=== PATIENT | male | born 1965 | race Caucasian/White ===

== ENCOUNTER 2024-06-13 16:09 | Emergency (ER) | payer SELFPAY ==
[2024-06-13 17:54] LABS: Absolute Basophils 0.1 K/uL (0-0.5); Absolute Eosinophils 0.1 K/uL (0-0.5); Absolute Lymphocytes (CBC) 1.3 K/uL (0.7-4.9); Absolute Monocytes 1.3 K/uL (0.1-1.3); Absolute Neutrophil 12.4 K/uL (1.8-8.0); Basophils % 0.7 % (0-1.3); Eosinophils % 0.7 % (0-4.4); Hematocrit 37.1 % (39.6-49.0); Lymphocytes % 8.4 % (15.3-44.8); MCH 28.6 pg (27.0-35.0); MCHC 32.4 g/dL (32.0-36.0); MPV 6.9 fL (7.6-11.3); Monocytes % 8.3 % (3.3-12.3); Neutrophils % 81.9 % (41.7-73.7); Platelets 382 thou/uL (152-406); RBC Red Blood Cell Count 4.21 M/uL (4.33-5.43); Red Cell Distribution Width 15.9 % (12.1-15.2)
[2024-06-13 17:56] LABS: PT Prothrombin Time 12.4 SECONDS (9.4-12.5); PTT, Activated Partial Thromb 30.2 SECONDS (24.3-36.9); Protime INR 1.11
[2024-06-13 18:10] LABS: Albumin/Globulin Ratio 0.5 (1.1-1.8); Anion Gap 10.9 mEq/L (5.0-15.0); Bilirubin Direct 0.3 mg/dL (0-0.2); Bilirubin Indirect, Calculated 0.3 mg/dL (0.2-0.8); Bilirubin Total 0.6 mg/dL (0.2-1.0); Globulin 3.7 g/dL (2.3-3.5); Potassium 2.9 mEq/L (3.5-5.1); Protein, Total 5.7 g/dL (6.4-8.2); Troponin High Sensitivity 5.2 pg/mL (<58.9)
--- NOTE | 2024-06-13 18:27 | RAD REPORT ---
EXAMINATION: TWO VIEW CHEST XR CLINICAL INDICATION: Male, 59 years old. [facility] MAIN DYSPNEA Bed Name: 6 TECHNIQUE: 2 view radiographs of the chest were performed. COMPARISON: No prior exam. FINDINGS: The lungs are well inflated. Bibasilar streaky opacities. Right small layering pleural effusion with additional hazy right basilar opacification. No pneumothorax. The heart is normal in size. Mediastinal contours are unremarkable. IMPRESSION: Right more than left basilar opacities with small right pleural effusion. Underlying pneumonia should be considered.
--- NOTE | 2024-06-13 19:21 | RAD REPORT ---
EXAMINATION: CT Abdomen Pelvis Wo Contrast CLINICAL INDICATION: Male, 59 years old. Abd pain;Abdominal distention TECHNIQUE: CT abdomen and pelvis was performed, without IV contrast, as per department protocol. Axia l, sagittal and coronal reconstructions were obtained. One or more of the following dose reduction techniques were used: Automated exposure control, adjustment of the mA and kV according to the patien t size, and iterative reconstruction. Unless otherwise specified, incidental findings do not require dedicated imaging follow-up. COMPARISON: No prior exam. FINDINGS: The lack of intravenous contrast limits the sensitivity of this exam for evaluation of solid visceral organs, vascular structures, and retroperitoneum. LOWER CHEST: Bilateral small pleural effusions, larger on the right. Underlying right segmental depen dent airspace opacities with some groundglass opacification in the right lower and middle lobes as well. LIVER: Enlarged, with lobular contour, and innumerable hypoattenuating lesions, some of which demonst rating target morphology, largest measuring 7.2 cm in greatest axial dimension in the left liver lobe.. BILIARY SYSTEM: No suspicious abnormalities. SPLEEN: Normal size. No focal lesion. PANCREAS: No mass, ductal dilation, or rodney-pancreatic fluid. ADRENALS: Normal; no mass. KIDNEYS AND URETERS: Normal size and contour. No hydronephrosis. URINARY BLADDER: Normal contour. GASTROINTESTINAL TRACT: Distal sigmoid through rectal segmental circumferential wall prominence, alth ough under distention limits evaluation. A soft tissue mass is present in the presacral space, measuring 3.6 x 2.7 cm in greatest axial dimension, containing a focus of mineralization, appears to be inseparable from the upper rectal adventitia. No evidence of bowel obstruction, free air or abscess. Moderate to large free ascites. For [id number] ratio limits evaluation for peritoneal l esions. APPENDIX: Appendix not visualized, but no inflammatory changes in region of appendix. LYMPH NODES: No lymphadenopathy. MUSCULOSKELETAL: No acute or suspicious osseous abnormality. ADDITIONAL FINDINGS: Moderate diffuse body wall edema.. IMPRESSION: Hepatomegaly with innumerable hypoattenuating liver masses, concerning for metastatic disease. Segmental circumferential wall prominence of the distal sigmoid colon to rectum, could indicate an un derlying mucosal mass, which could represent the primary malignancy, although under distention limits evaluation. A soft tissue mass is present in the presacral space, contiguous with the upper re ctal adventitia measuring up to 3.6 cm, concerning for extra-rectal spread. Moderate to large ascites, bilateral pleural effusions, and body wall edema, may relate to anasarca o r fluid overload. Right basilar airspace opacities, concerning for pneumonia.
--- NOTE | 2024-06-13 19:24 | RAD REPORT ---
EXAMINATION: CT Thorax Wo Con CLINICAL INDICATION: Male, 59 years old. [facility] MAIN abnormal xray Y TECHNIQUE: Axial CT scan of the chest without intravenous contrast. Multiplanar reformats were genera sue and reviewed. One or more of the following dose reduction techniques were used: Automated exposure control, adjustment of the mA and/or kV according patient size, and/or iterative reconstruct ion. Unless otherwise specified, incidental findings do not require dedicated imaging follow-up. COMPARISON: No prior exam. FINDINGS: LOWER NECK: Visualized thyroid gland and soft tissues are normal. LUNGS: Platelike atelectasis in the left lower lung. Segmental airspace opacities with some groundgla ss opacification in the basal right lower lobe and middle lobe. Mild centrilobular emphysematous changes at the apices. No worrisome nodules. PLEURA: Bilateral layering small pleural effusions, larger on the right. No pneumothorax. . MEDIASTINUM AND LYMPH NODES: No mediastinal mass or fluid collection. Normal size mediastinal, hilar, and axillary lymph nodes. OSSEOUS STRUCTURES AND CHEST WALL: Intact. UPPER ABDOMEN: Please refer to separately dictated CT abdomen and pelvis of the same day.. IMPRESSION: Right basilar airspace opacities as above, concerning for pneumonia until proven otherwise. Bilateral small layering effusions, larger on the right. CT abdomen and pelvis reported separately.
--- NOTE | 2024-06-13 19:45 | ER ---
Nurse's Notes [facility] Name: Darshan Mendez Age: 59 yrs Sex: Male : 1965 Arrival Date: 06/13/2024 Time: 16:09 Bed 6 Private MD: Diagnosis: Malignant ascites;Nonspecific elevation of levels of transaminase and lactic acid dehydrogenase [LDH] Presentation: 06/13 16:30 Chief complaint: Patient states: "I haven't been to the doctor in about 40 years and my aa5 stomach has been getting bigger and bigger, I am losing all this weight, I am so weak, and my legs are swollen". Pt reports he drinks "a six pack of beers every day". Pt reports diarrhea since around February. 16:30 Coronavirus screen: At this time, the client does not indicate any symptoms associated aa5 with coronavirus-19. Ebola Screen: Patient denies travel to an Ebola-affected area in the 21 days before illness onset. Initial Sepsis Screen: Does the patient meet any 2 criteria? No. Patient's initial sepsis screen is negative. Does the patient have a suspected source of infection? No. Patient's initial sepsis screen is negative. Risk Assessment: Do you want to hurt yourself or someone else? Patient reports no desire to harm self or others. Onset of symptoms was 2023. 16:30 Acuity: TOMER 2 aa5 16:30 Method Of Arrival: Wheelchair aa5 Triage Assessment: 16:30 General: Appears in no apparent distress. unkempt, Behavior is cooperative, appropriate bp for age, listless. Pain: Denies pain. EENT: No deficits noted. Neuro: Reports weakness. Cardiovascular: No deficits noted. Respiratory: No deficits noted. GI: Abdomen is noted to have ascites. : No signs and/or symptoms were reported regarding the genitourinary system. Derm: No deficits noted. Musculoskeletal: No deficits noted. Historical: - Allergies: 16:30 No Known Allergies; aa5 - Home Meds: 16:30 None [Active]; aa5 - PMHx: 16:30 None; aa5 - PSHx: 16:30 None; aa5 - Immunization history:: Adult Immunizations unknown. - Infectious Disease History:: Denies. - Social history:: Smoking status: Patient reports the use of cigarette tobacco products, smokes one pack cigarettes per day. Patient uses alcohol, on a daily basis. Smoking status: Patient reports the use of cigarette tobacco products, Patient uses alcohol, on a daily basis. claims drinking about a 6 pack/day. Screenin:30 [facility] ED Fall Risk Assessment (Adult) History of falling in the last 3 months, bp including since admission No falls in past 3 months (0 pts) Confusion or Disorientation No (0 pts) Intoxicated or Sedated No (0 pts) Impaired Gait No (0 pts) Mobility Assist Device Used No (0 pt) Altered Elimination No (0 pt) Score/Fall Risk Level 0 - 2 = Low Risk Oriented to surroundings. Abuse screen: Denies threats or abuse. Denies injuries from another. Nutritional screening: No deficits noted. Tuberculosis screening: No symptoms or risk factors identified. 19:20 Nutritional screening: Had unintentional weight loss of 10 pounds or more. jj7 Assessment: 16:30 General: SEE TRIAGE NOTE. bp 18:30 Reassessment: ATTEMPTED TO CLEAN PT OF INCONTINENCE, BUT PT REFUSED. bp 19:20 General: Appears in no apparent distress. uncomfortable, slender, Behavior is calm, jj7 cooperative, appropriate for age. Neuro: Reports weakness generalized. Cardiovascular: BILAT LOWERE EXTREMITY NON PITTING EDEMA. GI: Abd is rigid Hepatomegaly noted Ascites noted to abd. Abd large and rigid Reports abd swelling. 22:17 Reassessment: REPORT GIVEN TO SHELLEY ALBARADO AT [facility]. jj7 22:53 Reassessment: [facility] AT BEDSIDE TO TRANSFER PT. jj7 Vital Signs: 16:30 BP 150 / 91; Pulse 97; Resp 22 S; Temp 98.1(O); Pulse Ox 95% on R/A; Height 6 ft. 3 in. aa5 (R); 16:40 Weight 83.91 kg (M); ss 18:30 BP 143 / 85; Pulse 95; Resp 18; Pulse Ox 94% ; bp 19:20 BP 130 / 80; Pulse 85; Resp 16; Pulse Ox 96% ; jj7 20:30 BP 141 / 91; Pulse 81; Resp 17; Pulse Ox 92% ; jj7 21:30 BP 140 / 91; Pulse 97; Resp 17; Pulse Ox 93% on NC; jj7 22:53 BP 126 / 82; Pulse 91; Resp 17; Temp 98.4; Pulse Ox 94% on 2 lpm NC; jj7 ED Course: 16:13 Patient arrived in ED. sj2 16:30 Arm band placed on. aa5 16:30 Patient has correct armband on for positive identification. bp 16:34 Triage completed. aa5 16:36 Alvaro Nogueira, PRINTER MAINTAINER-C [facility]. dr5 16:36 Henry Garcia MD is Attending Physician. dr5 16:42 Carlos Grissom, VERENA is Primary Nurse. bp 17:27 Initial lab(s) drawn, by me, sent to lab. EKG done, by ED staff, reviewed by Alvaro MELGOZA. Inserted saline lock: 20 gauge in right forearm, using aseptic technique. Blood collected. Flushed with 10 mL NS. 17:40 Chest Pa And Lat (2 Views) XRAY In Process Unspecified. EDMS 19:04 CT Abd/Pelvis - Without Contrast In Process Unspecified. EDMS 19:11 Thorax Wo Con In Process Unspecified. EDMS 19:20 Provided Education on: USE OF CALL MCKEON. jj7 21:20 Bautista cath inserted, using sterile technique, 16 Fr., by me, balloon inflated, to jj7 gravity drainage, returned fabio urine. Patient tolerated poorly. 21:49 Initiated transfer with Michelle \\T\\[id number]. Acceptance to [facility] RM [id number] \\T\\[id number] by af 3 Kecia Marin. Nurse to nurse [phone]. 22:21 [facility] to transfer pt, spoke with Delores \\T\\[id number], ETA 15min. af3 23:00 No provider procedures requiring assistance completed. Patient transferred, IV remains jj7 in place. 23:00 PT TRANSFERRED WITH BAUTISTA. jj7 Administered Medications: 21:19 Drug: Potassium Chloride PO 40 mEq PO once Route: PO; jj7 21:38 Follow up: Response: No adverse reaction jj7 21:19 Drug: Furosemide IVP 40 mg IVP once; give over 2 minutes Route: IVP; Site: right jj7 antecubital; 21:37 Follow up: Response: No adverse reaction jj7 21:19 Drug: Rocephin - Rocephin (cefTRIAXone) IVPB 2 grams IVPB once over 30 mins; (mix in jj7 100 mL NS) Route: IVPB; Infused Over: 30 mins; Site: right antecubital; 21:50 Follow up: IV Status: Completed infusion jj7 22:51 Drug: Ondansetron IVP 4 mg IVP once; over 2 minutes Route: IVP; Site: right forearm; jj7 22:55 Follow up: Response: No adverse reaction jj7 22:52 Drug: morphine IVP or IV 2 mg IVP once over 4 mins Route: IVP; Infused Over: 4 mins; jj7 Site: right forearm; 22:55 Follow up: Response: Marked relief of symptoms; Pain is decreased jj7 Medication: 16:30 VIS not applicable for this client. bp Output: 22:52 Urine: 2100ml (Bautista); Total: 2100ml. jj7 Outcome: 19:45 ER care complete, transfer ordered by . dr5 23:00 Transferred by ground EMS EMS. to [facility] [facility] [place] jj7 completed. X-rays sent w/ patient. 23:00 Condition: improved 23:00 Patient left the ED. jj7 Signatures: Dispatcher [employer] EDMS Rocio Mackay RN RN aa5 Lynda Moise RN RN ss Peltier, Brian, RN RN bp Johnson, Juwairiyah, RN RN jj7 Angelique Leger af3 Clement, Melisa sj2 Alvaro Nogueira, PRINTER MAINTAINER-C PRINTER MAINTAINER-Cdr5 Corrections: (The following items were deleted from the chart) 21:20 21:20 Bautista cath inserted, using sterile technique, [address], balloon inflated, to jj7 gravity drainage, jj7 23:17 19:20 GI: Abd is rigid Ascites noted to abd. Abd large and rigid Reports abd swelling jj7 jj7 23:17 19:20 Cardiovascular: BILAT LOWERE EXTREMITY NON PITTING EDEMA. jj7 jj7 23:20 23:19 Patient left the ED. jj7 jj7
--- NOTE | 2024-06-13 19:45 | EDPHYS ---
Physician Documentation [facility] Name: Darshan Mendez Age: 59 yrs Sex: Male : 1965 Arrival Date: 06/13/2024 Time: 16:09 Bed 6 Private MD: ED Physician Henry Garcia HPI: 06/13 20:48 This 59 yrs old Male presents to ER via Wheelchair with complaints of dr5 Abdominal Swelling, General Weakness. 20:48 The patient presents with abdominal distention that is diffuse. Onset: The dr5 symptoms/episode began/occurred 1 year(s) ago. Associated signs and symptoms: Pertinent positives: diarrhea, shortness of breath, Testicular swelling / bilateral lower leg swelling. Pt is a 59 year old male presenting with sacral swelling, abdominal distention, and bilateral lower leg swelling. Pt reports he gets short of breath when ambulating.. Historical: - Allergies: 16:30 No Known Allergies; aa5 - Home Meds: 16:30 None [Active]; aa5 - PMHx: 16:30 None; aa5 - PSHx: 16:30 None; aa5 - Immunization history:: Adult Immunizations unknown. - Infectious Disease History:: Denies. - Social history:: Smoking status: Patient reports the use of cigarette tobacco products, smokes one pack cigarettes per day. Patient uses alcohol, on a daily basis. Smoking status: Patient reports the use of cigarette tobacco products, Patient uses alcohol, on a daily basis. claims drinking about a 6 pack/day. ROS: 20:48 Constitutional: as per hpi dr5 Exam: 20:48 Constitutional: This is a well developed, well nourished patient who is awake, alert, dr5 and in no acute distress. 20:48 Eyes: Exam is negative for acute changes, 20:48 ENT: Exam is negative for acute changes, 20:48 Neck: Exam negative for acute changes, 20:48 Chest/axilla: Inspection: normal, Palpation: is normal, Axilla: 20:48 Cardiovascular: Rate: normal, Rhythm: regular, Heart sounds: normal, 20:48 Respiratory: mild respiratory distress is noted, Respirations: normal, Breath sounds: rales, are scattered, are heard diffusely, 20:48 Abdomen/GI: Inspection: distension, that is severe, in the suprapubic area, right upper quadrant, left upper quadrant, left lower quadrant and abdomen diffusely, Bowel sounds: diminished, Palpation: abdomen is soft and non-tender, Liver: is enlarged, 20:48 : Male external genitalia: swelling, testicle, 20:48 Musculoskeletal/extremity: Extremities: noted in the right leg and left leg: swelling, 20:48 Neuro: Exam negative for acute changes, Vital Signs: 16:30 BP 150 / 91; Pulse 97; Resp 22 S; Temp 98.1(O); Pulse Ox 95% on R/A; Height 6 ft. 3 in. aa5 (R); 16:40 Weight 83.91 kg (M); ss 18:30 BP 143 / 85; Pulse 95; Resp 18; Pulse Ox 94% ; bp 19:20 BP 130 / 80; Pulse 85; Resp 16; Pulse Ox 96% ; jj7 20:30 BP 141 / 91; Pulse 81; Resp 17; Pulse Ox 92% ; jj7 21:30 BP 140 / 91; Pulse 97; Resp 17; Pulse Ox 93% on NC; jj7 22:53 BP 126 / 82; Pulse 91; Resp 17; Temp 98.4; Pulse Ox 94% on 2 lpm NC; jj7 MDM: 16:36 Medical Screening Exam initiated christina 20:48 Differential diagnosis: Cirrhosis, Liver Disease, Cancer. Data reviewed: vital signs, dr5 nurses notes. Consideration of Admission/Observation Patient was admitted/placed on observation. Management of patient was discussed with the following: Hospitalist at [facility]. Historians other than the Patient: Spouse/Significant Other: / Daughter. Care significantly affected by the following Social Determinants of Health: Poor access to healthcare and/or lack of insurance, Poor access to transportation. Awaiting: transfer to another facility. Transition of care:. ED course: Patient has innumerable liver masses concerning for malignancy. Transfer to [facility] due to not having GI here.. 06/13 16:47 Order name: CBC with Diff; Complete Time: 18:04 dr5 06/13 16:47 Order name: Hepatic Function; Complete Time: 18:16 dr5 06/13 16:47 Order name: Lipase; Complete Time: 18:16 dr5 06/13 16:47 Order name: Magnesium; Complete Time: 18:16 dr5 06/13 16:47 Order name: NT PRO-BNP; Complete Time: 18:16 dr5 06/13 16:47 Order name: PT-INR; Complete Time: 18:04 [facility] 06/13 16:47 Order name: Ptt, Activated; Complete Time: 18:04 [facility] 06/13 16:47 Order name: Troponin HS; Complete Time: 18:16 [facility] 06/13 16:47 Order name: CMP; Complete Time: 18:16 [facility] 06/13 16:47 Order name: AMMONIA; Complete Time: 18:04 [facility] 06/13 18:05 Order name: Blood Culture Adult (2) dr5 06/13 18:05 Order name: Lactate w/ 2H reflex if indic.; Complete Time: 19:27 [facility] 06/13 21:23 Order name: Ghost Lactate-NO COLLECT Timer; Complete Time: 21:32 EDMS 06/13 16:47 Order name: Chest Pa And Lat (2 Views) XRAY; Complete Time: 18:28 [facility] 06/13 18:26 Order name: CT Abd/Pelvis - Without Contrast; Complete Time: 19:23 [facility] 06/13 19:07 Order name: Thorax Wo Con; Complete Time: 19:27 EDMS 06/13 16:47 Order name: Cardiac monitoring; Complete Time: 16:49 [facility] 06/13 16:47 Order name: EKG - Nurse/Tech; Complete Time: 17:26 [facility] 06/13 16:47 Order name: IV Saline Lock; Complete Time: 17:27 [facility] 06/13 16:47 Order name: Labs collected and sent; Complete Time: 17:27 [facility] 06/13 16:47 Order name: O2 Per Protocol; Complete Time: 16:49 [facility] 06/13 16:47 Order name: O2 Sat Monitoring; Complete Time: 16:49 [facility] 06/13 19:45 Order name: Clay; Complete Time: 21:19 dr5 Administered Medications: 21:19 Drug: Potassium Chloride PO 40 mEq PO once Route: PO; jj7 21:38 Follow up: Response: No adverse reaction jj7 21:19 Drug: Furosemide IVP 40 mg IVP once; give over 2 minutes Route: IVP; Site: right j7 antecubital; 21:37 Follow up: Response: No adverse reaction jj7 21:19 Drug: Rocephin - Rocephin (cefTRIAXone) IVPB 2 grams IVPB once over 30 mins; (mix in jj7 100 mL NS) Route: IVPB; Infused Over: 30 mins; Site: right antecubital; 21:50 Follow up: IV Status: Completed infusion jj7 22:51 Drug: Ondansetron IVP 4 mg IVP once; over 2 minutes Route: IVP; Site: right forearm; jj7 22:55 Follow up: Response: No adverse reaction jj7 22:52 Drug: morphine IVP or IV 2 mg IVP once over 4 mins Route: IVP; Infused Over: 4 mins; jj7 Site: right forearm; 22:55 Follow up: Response: Marked relief of symptoms; Pain is decreased jj7 Disposition Summary: 06/13/24 19:45 Transfer Ordered Notes: Reason: Higher level of care dr5 Condition: Stable dr5 Problem: new dr5 Symptoms: are unchanged dr5 Transfer Location: [facility](06/13/24 21:35) dr5 Accepting Physician: Janay [facility](06/13/24 23:19) jj7 Diagnosis - Malignant ascites dr5 - Nonspecific elevation of levels of transaminase and lactic acid dehydrogenase [LDH] dr5 Forms: - Medication Reconciliation Form dr5 - SBAR form dr5 Signatures: Dispatcher [employer] EDMS Henry Garcia MD MD cha Calderon, Audri RN RN aa5 Chantell Mckeon RN RN jj7 Alvaro Nogueira FNP-Kimberly INDEPENDENT FILM MAKER-Cdr5 Corrections: (The following items were deleted from the chart) 18:06 18:06 BLOOD CULTURE*+BA.LAB.BRZ ordered. EDMS EDMS 18:06 18:06 LACTATE+C.LAB.BRZ ordered. EDMS EDMS 18:26 18:26 Abdomen Pelvis Wo Con+CT.RAD.BRZ ordered. EDMS EDMS 21:35 19:45 [facility] dr5 dr5 21:35 19:45 [facility] dr5 dr5 23:19 21:35 [facility] dr5 jj7
[2024-06-13] MEDS ORDERED: CEFTRIAXONE 2000 MG/VIAL ONE (20:51)
[2024-06-13] MEDS ORDERED: FUROSEMIDE 40 MG/4 ML VIAL ONE (20:52)
[2024-06-13] MEDS ORDERED: POTASSIUM CL SA 10 MEQ TAB PO ONE (20:52)
[2024-06-13] MEDS ORDERED: NA CHLORIDE 0.9% 100 ML ONE (20:52)
[2024-06-13] MEDS ORDERED: ONDANSETRON 4 MG/2 ML VIAL ONE (22:45)
[2024-06-13] MEDS ORDERED: MORPHINE 2 MG/ML SYR ONE (22:45)
[2024-06-14 11:48] VITALS: BP 126/82; TEMP 98.4; O2SAT 94
--- NOTE | 2024-06-14 15:03 | EKG ---
Test Date: 2024-06-13 Test Time: 17:30:18 [employer] Termite: PH MEASUREMENT RESULTS: Intervals: Rate: 88 MD: 128 QRSD: 84 QT: 382 QTc: 462 [place]: P: 78 MD: 128 QRS: -38 T: 31 INTERPRETIVE STATEMENTS: Normal sinus rhythm Left axis deviation Abnormal ECG No previous ECG available for comparison Electronically Signed On 06-14-24 15:02:27 CDT by Cristo Samson
== END 2024-06-13 23:19 | disposition short-term general hospital (02) ==
LOC: ER 16:09
DX: R14.0 Abdominal distension (gaseous) (principal); R18.0 Malignant ascites; R74.01 Elevation of levels of liver transaminase levels; R74.02 Elevation of levels of lactic acid dehydrogenase [LDH]; F17.210 Nicotine dependence, cigarettes, uncomplicated
CPT/HCPCS: 36415; 51702; 71046; 71250; 74176; 80053; 80076; 82140; 83605; 83690; 83735; 83880; 84484; 85025; 85610; 85730; 87040; 93005; 99285; J0696; J1940; J2270; J2405